=== PATIENT | male | born 1985 | race Caucasian/White ===

== ENCOUNTER 2017-03-24 11:58 | Emergency (ER) | payer OTHER ==
[~2017-03-24] VITALS: Ht 177.8 cm; Wt 86.2 kg
[2017-03-24] MEDS ORDERED: ZANA4TAB (12:12)
[2017-03-24] MEDS ORDERED: CYCL10TA PO (12:12)
[2017-03-24] MEDS ORDERED: OXYC1TAB16 PO (12:12)
[2017-03-24] MEDS ORDERED: IBUP80TA PO (12:12)
[2017-03-24] MEDS ORDERED: MORPHINE 10 MG/ML 1ML VIAL IM ONE (13:15)
[2017-03-24] MEDS ORDERED: VALI5TAB PO (13:54)
[2017-03-24 13:59] VITALS: BP 139/85
== END 2017-03-24 14:13 | disposition home or self-care (01) ==
LOC: M ED 13:06
DX: M54.17 Radiculopathy, lumbosacral region (principal); S39.012A Strain of muscle, fascia and tendon of lower back, initial encounter; X58.XXXA Exposure to other specified factors, initial encounter; Y92.89 Other specified places as the place of occurrence of the external cause; Y93.89 Activity, other specified; Y99.8 Other external cause status; Z79.899 Other long term (current) drug therapy; Z88.0 Allergy status to penicillin
CPT/HCPCS: 96372; 99282; J3360

== ENCOUNTER → 2017-03-27 | Outpatient (CLI) | payer OTHER ==
[~2017-03-27] MED LIST: CYCL10TA PO; IBUP80TA PO; OXYC1TAB16 PO; VALI5TAB PO; ZANA4TAB
[2017-03-27 15:49] LABS: BLOOD UREA NITROGEN 17 MG/DL (7-18); CREATININE FOR GFR 0.91 MG/DL (0.70-1.30); GLOMERULAR FILTRATION RATE > 60.0 (>60)
== END ==
LOC: M LAB 14:02
PROVIDERS: ATTEND Nurse Practitioner Family
DX: M54.16 Radiculopathy, lumbar region (principal); M51.36 Other intervertebral disc degeneration, lumbar region; M47.816 Spondylosis without myelopathy or radiculopathy, lumbar region; M70.62 Trochanteric bursitis, left hip; M46.1 Sacroiliitis, not elsewhere classified; M51.27 Other intervertebral disc displacement, lumbosacral region; G56.20 Lesion of ulnar nerve, unspecified upper limb; M79.1 Myalgia; M50.30 Other cervical disc degeneration, unspecified cervical region; M50.20 Other cervical disc displacement, unspecified cervical region; M47.812 Spondylosis without myelopathy or radiculopathy, cervical region; M54.12 Radiculopathy, cervical region; Y99.8 Other external cause status; Y93.9 Activity, unspecified; Y92.9 Unspecified place or not applicable

== ENCOUNTER 2021-10-09 14:11 | Emergency (ER) | payer OTHER ==
[~2021-10-09] VITALS: Ht 177.8 cm; Wt 85.5 kg
[~2021-10-09 14:11] MED LIST changes: +CYCL-707 PO; -CYCL10TA PO; +OXYC10TA3 PO; -OXYC1TAB16 PO
[2021-10-09] MEDS ORDERED: MUCI1TAB18 PO (14:19)
[2021-10-09] MEDS ORDERED: CLAR10CA3 PO (14:19)
[2021-10-09 15:55] LABS: RSV AMPLIFICATION NEGATIVE (NEGATIVE)
[2021-10-09] MEDS ORDERED: ZITH250T PO (16:20)
[2021-10-09 16:28] VITALS: BP 130/83
== END 2021-10-09 16:40 | disposition home or self-care (01) ==
LOC: M ED 14:11
DX: J01.90 Acute sinusitis, unspecified (principal); Z88.0 Allergy status to penicillin